=== PATIENT | female | born 1965 | race Hispanic/Latino ===

== ENCOUNTER 2018-02-10 13:55 | Outpatient (CLI) | payer MEDICAID ==
--- NOTE | 2018-02-12 09:03 | Mammography Report ---
Bilateral mammogram: No previous studies available. CAD study utilized. Findings: Predominance of adipose tissue bilaterally. Linear calcifications noted at upper outer right breast. No mass. Normal axilla. Impression: Calcifications right breast. Recommend spot magnification views. BI-RADS CATEGORY: 0 = Needs additional imaging evaluation ACR BI-RADS MAMMOGRAPHIC CODES: 0 = Needs additional imaging evaluation; 1 = Negative; 2 = Benign; 3 = Probably benign; 4 = Suspicious; 5 = Malignant; 6 = Known biopsy-proven malignancy COMMENT: 1. Dense breast tissue, i.e., adenosis, fibrocystic changes, etc., may obscure an underlying neoplasm. 2. Approximately 10% of cancers are not detected with mammography. 3. A negative mammography report should not delay biopsy if a clinically suspicious mass is present. COMMENT: Patient follow-up letters are generated in [employer].
== END 2018-02-10 13:56 | disposition home or self-care (01) ==
LOC: MAMMO 13:55
PROVIDERS: ATTEND Nurse Practitioner Gerontology
DX: Z12.31 Encounter for screening mammogram for malignant neoplasm of breast (principal)
CPT/HCPCS: 77067

== ENCOUNTER → 2018-04-09 | Outpatient (CLI) | payer MEDICAID ==
--- NOTE | 2018-04-09 13:34 | Mammography Report ---
RIGHT DIGITAL DIAGNOSTIC MAMMOGRAM : 04/09/18 12:50:00 CLINICAL: Recall to evaluate calcifications. COMPARISON:02/10/18 screening mammogram FINDINGS: ML and CC magnification views demonstrate a group of eight mostly linear shaped calcifications in a linear orientation. No associated mass or architectural distortion. IMPRESSION: Probably benign calcifications. BI-RADS CATEGORY: 3 -- Probably Benign RECOMMENDATION: 6 month follow-up magnification views to confirm stability. ACR BI-RADS MAMMOGRAPHIC CODES: 0 = Needs additional imaging evaluation; 1 = Negative; 2 = Benign; 3 = Probably benign; 4 = Suspicious; 5 = Malignant; 6 = Known biopsy-proven malignancy COMMENT: 1. Dense breast tissue, i.e., adenosis, fibrocystic changes, etc., may obscure an underlying neoplasm. 2. Approximately 10% of cancers are not detected with mammography. 3. A negative mammography report should not delay biopsy if a clinically suspicious mass is present. COMMENT: Patient follow-up letters are generated by our [employer] application.
== END | disposition home or self-care (01) ==
LOC: MAMMO 12:50
PROVIDERS: ATTEND Advanced Practice Midwife
DX: R92.8 Other abnormal and inconclusive findings on diagnostic imaging of breast (principal); Z88.6 Allergy status to analgesic agent